=== PATIENT | male | born 1935 | race Caucasian/White ===

== ENCOUNTER 2017-08-25 08:12 | Day surgery (SDC) | payer MEDICARE ==
[~2017-08-25 08:12] MED LIST: ACETAMINOPHEN 325 MG TAB PO; MIDAZOLAM INJ 2 MG/2 ML VIAL (J2250) As Ordered; PHENYLEPHRINE HCL 10 % OPHTH. SOL 5ML OS; PROPARACAINE 0.5% OPHTH SOL 15ML OS; fentaNYL 100 MCG/2 ML INJECTION (J3010) As Ordered
[2017-08-25] MEDS ORDERED: TRIMETHOBENZAMIDE 300 MG CAP PO (08:30)
[2017-08-25] MEDS ORDERED: OFLOXACIN 0.3 % (OCUFLOX) OPTH SOL 5ML As Ordered (08:44)
[2017-08-25] MEDS ORDERED: CYCLOPENTOLATE 2% OPHTH SOLN 2ML BTL As Ordered (08:44)
[2017-08-25] MEDS ORDERED: TROPICAMIDE 1% OPHTH SOLN 2ML As Ordered (08:44)
[2017-08-25] MEDS ORDERED: PHENYLEPHRINE 2.5% OPHTH SOL 2ML As Ordered (08:44)
[2017-08-25] MEDS: PHENYLEPHRINE 2.5% OPHTH SOL 2ML OS (09:00)
[2017-08-25] MEDS: LIDOCAINE 3.5 % 1ML OPHTH TOPICAL GEL OU (09:00)
[2017-08-25] MEDS: CYCLOPENTOLATE 2% OPHTH SOLN 2ML BTL OS (09:00)
[2017-08-25] MEDS: OFLOXACIN 0.3 % (OCUFLOX) OPTH SOL 5ML OS (09:00)
[2017-08-25] MEDS: TROPICAMIDE 1% OPHTH SOLN 2ML OS (09:01)
[2017-08-25] MEDS: POVIDONE-IODINE 5% OPHTH PREP SOL 30ML As Ordered (10:00)
[2017-08-25] MEDS: LIDOCAINE 1% SDV 5 ML VIAL As Ordered (10:01)
[2017-08-25] MEDS: CEFUROXIME 1MG/0.1ML INTRACAMERAL INJ As Ordered (10:07)
[2017-08-25] MEDS: BALANCED SALT IRRIGATION SOLUTION 500ML BAG (FOR OR EYE MACHINE) As Ordered (10:07)
[2017-08-25] MEDS: HEALON DUET (HEALON 10MG/ML 0.55ML & HEALON ENDOCOAT 30MG/ML 0.85ML) As Ordered (10:07)
[2017-08-25] MEDS: AcetaZOLAMIDE 500 MG ER CAP PO (10:30)
[2017-08-25] MEDS: KETOROLAC 0.5% OPHTH SOLN OS (10:30)
== END 2017-08-25 10:50 | disposition home or self-care (01) ==
LOC: M SDC 08:12
DX: H25.12 Age-related nuclear cataract, left eye (principal); I10 Essential (primary) hypertension; Z79.82 Long term (current) use of aspirin; Z79.899 Other long term (current) drug therapy
CPT/HCPCS: 66984

== ENCOUNTER → 2025-03-08 | Outpatient (REF) | payer MEDICARE ==
[~2025-03-08] MED LIST changes: -ACETAMINOPHEN 325 MG TAB PO; +ASPI81TA26 PO; +METO1TAB87; -MIDAZOLAM INJ 2 MG/2 ML VIAL (J2250) As Ordered; -PHENYLEPHRINE HCL 10 % OPHTH. SOL 5ML OS; -PROPARACAINE 0.5% OPHTH SOL 15ML OS; +TAMS-18; +VITA100067 PO; -fentaNYL 100 MCG/2 ML INJECTION (J3010) As Ordered
[2025-03-08 18:31] LABS: APPEARANCE, URINE CLOUDY (CLEAR); BACTERIA, URINE AUTO NEGATIVE (NEGATIVE); BILIRUBIN, URINE AUTO NEGATIVE (NEGATIVE); BLOOD, URINE BLOOD 2+ (NEGATIVE); GLUCOSE, URINE (UA) AUTO NEGATIVE (NEGATIVE); KETONE, URINE AUTO NEGATIVE (NEGATIVE); LEUKOCYTE ESTERASE, URINE AUTO NEGATIVE (NEGATIVE); MUCUS, URINE SMALL (NEGATIVE); NITRITE, URINE AUTO NEGATIVE (NEGATIVE); PROTEIN, URINE AUTO 2+ mg/dL (NEGATIVE); RBC, URINE AUTO TNTC /HPF (0-3); SPECIFIC GRAVITY URINE AUTO 1.019 (1.002-1.035); SQUAMOUS EPITHELIAL CELL UR AU 1 /HPF (0-6); UROBILINOGEN, URINE AUTO 0.2 mg/dL (0.0-2.0); WBC, URINE AUTO 3 /HPF (0-3)
== END ==
LOC: M LAB REF 14:15
PROVIDERS: ATTEND Physician Assistant
DX: R31.0 Gross hematuria (principal)